=== PATIENT | male | born 2000 | race American Indian/Alaskan Native ===

== ENCOUNTER 2020-12-02 15:18 | Emergency (ER) | payer MEDICAID ==
[2020-12-02] MEDS ORDERED: levETIRAcetam 500 MG TAB PO ONE (16:01)
--- NOTE | 2020-12-02 16:03 | Emergency Department Report ---
ED Seizure HPI - General Chief Complaint: Seizure Stated Complaint: SEIZURE Time Seen by Provider: 12/02/20 15:51 Source: patient, EMS Mode of arrival: Stretcher Limitations: No Limitations - History of Present Illness Initial Comments: Patient is a 19-year-old male with history of seizure disorder noncompliant with Keppra times several months who presents emergency department for evaluation of generalized tonic-clonic seizure witnessed by family this morning. Patient denies substance abuse, denies head trauma. Patient does note history of recent nonproductive cough without fever in context of multiple other sick family members. Patient denies nausea vomiting or diarrhea, denies abdominal pain, denies rash. - Related Data Allergies Allergy/AdvReac Type Severity Reaction Status Date / Time No Known Allergies Allergy Unverified 12/02/20 15:37 ED Review of Systems ROS: Stated complaint: SEIZURE Other details as noted in HPI Comment: All other systems reviewed and negative ED Past Medical Hx - Past Medical History Previous Medical History?: Yes Hx Seizures: Yes - Surgical History Past Surgical History?: No - Social History Smoking Status: Current Some Day Smoker Substance Use Type: None ED Physical Exam - General Limitations: No Limitations General appearance: alert, in no apparent distress - Head Head exam: Present: atraumatic, normocephalic - Eye Eye exam: Present: normal appearance - ENT ENT exam: Present: mucous membranes moist - Neck Neck exam: Present: normal inspection - Respiratory Respiratory exam: Present: normal lung sounds bilaterally. Absent: respiratory distress - Cardiovascular Cardiovascular Exam: Present: regular rate, normal rhythm. Absent: systolic murmur, diastolic murmur, rubs, gallop - GI/Abdominal GI/Abdominal exam: Present: soft, normal bowel sounds - Rectal Rectal exam: Present: deferred - Extremities Exam Extremities exam: Present: normal inspection - Back Exam Back exam: Present: normal inspection - Neurological Exam Neurological exam: Present: alert, oriented X3 - Psychiatric Psychiatric exam: Present: normal affect, normal mood - Skin Skin exam: Present: warm, dry, intact, normal color. Absent: rash ED Course Vital Signs 12/02/20 12/02/20 15:31 15:38 Temperature 98.1 F Pulse Rate 73 Respiratory 16 16 Rate Blood Pressure 116/73 O2 Sat by Pulse 100 100 Oximetry - Reevaluation(s) Reevaluation #1: 12/02/20 16:03 Patient treated with Keppra 1 g p.o. x1 discussed at length importance of compliance with medication chronically. ED Medical Decision Making - Radiology Data Referring Physician: RAHEEM LAMAR Patient Name: SILVINA SOOD Date of : 2000 Sex: Male Report Date: 2020-12-02 Report Status: Finalized [facility] [address] [id number] XRay Report Signed Patient: SILVINA SOOD JR MR#: [id number] : 2000 Acct:[id number] Age/Sex: 19 / M ADM Date: 12/02/20 Loc: ED Attending Dr: Ordering Physician: RAHEEM LAMAR MD Date of Service: 12/02/20 Procedure(s): XR chest 1V ap Accession Number(s): [id number] cc: RAHEEM LAMAR MD Fluoro Time In Minutes: CHEST 1 VIEW INDICATION: cough. COMPARISON: None FINDINGS: Support devices: None. Heart: Within normal limits. Lungs/Pleura: No acute air space or interstitial disease. Additional findings: None. IMPRESSION: No acute findings. Signer Name: Sanket Galvez Jr, MD Signed: 12/02/2020 4:16 PM Workstation Name: [id number] Transcribed By: TTR Dictated By: SANKET GALVEZ JR, MD Electronically Authenticated By: SANKET GALVEZ JR, MD Signed Date/Time: 12/02/20 1616 Critical care attestation.: If time is entered above; I have spent that time in minutes in the direct care of this critically ill patient, excluding procedure time. ED Disposition Clinical Impression: Seizure, Noncompliance with medication regimen, Upper respiratory infection Disposition: DC-01 TO HOME OR SELFCARE Is pt being admited?: No Condition: Stable Instructions: Epilepsy, [id number] Additional Instructions: Follow-up with primary care doctor in 1 to 2 days for reevaluation. Please take all medication as prescribed. Return to the emergency department for worsening symptoms.
--- NOTE | 2020-12-02 16:20 | XRay Report ---
CHEST 1 VIEW INDICATION: cough. COMPARISON: None FINDINGS: Support devices: None. Heart: Within normal limits. Lungs/Pleura: No acute air space or interstitial disease. Additional findings: None. IMPRESSION: No acute findings. Signer Name: Sanket Faria Jr, MD Signed: 12/02/2020 4:16 PM Workstation Name: [id number]
[2020-12-02 17:49] VITALS: BP 141/67
== END 2020-12-02 17:59 | disposition home or self-care (01) ==
LOC: ED 15:18
DX: G40.909 Epilepsy, unspecified, not intractable, without status epilepticus (principal); J06.9 Acute upper respiratory infection, unspecified; F17.200 Nicotine dependence, unspecified, uncomplicated; Z91.14 Patient's other noncompliance with medication regimen
CPT/HCPCS: 71045